=== PATIENT | female | born 1990 | race Caucasian/White ===

== ENCOUNTER 2017-11-17 14:10 | Emergency (ER) | payer OTHER ==
--- NOTE | 2017-11-17 15:06 | EDPHY ---
H & P Stated Complaint: bit by a dog on friday, right hand swelling abx per UC increased swelling Source: Patient Exam Limitations: No limitations - Personal History LMP (Females 10-55): 8-14 Days Ago Current Tetanus Diphtheria and Acellular Pertussis (TDAP): Yes Tetanus Vaccine Date: 2017 - Medical/Surgical History Hx Asthma: Yes Hx Chronic Respiratory Disease: No Hx Diabetes: No Hx Cardiac Disease: No Hx Renal Disease: No Hx Cirrhosis: No Hx Alcoholism: No Hx HIV/AIDS: No Hx Splenectomy or Spleen Trauma: No Other PMH: left clavicle repair, migraines - Social History Smoking Status: Never smoked Time Seen by Provider: 11/17/17 15:05 HPI/ROS: HPI: This is a 27-year-old female who presents with Chief Complaint: bit by a dog on Friday, right hand swelling abx per UC increased swelling Location: Right hand Quality: Dog bite Duration: 2 days Signs and Symptoms: No bleeding, no radiation, no numbness, no weakness, no tingling, no incontinence, no decreased range of motion, + swelling, + pain Timing: Worsening Severity: Moderate Context: Patient is right-hand dominant, was bit by small dog Friday that was up-to-date on his immunizations including rabies vaccination. She presented to the urgent care center where the wound was cleaned out, irrigated, tetanus booster given and started on Augmentin. Patient reports that the pharmacy closed at 6 pm in she was unable to fill her prescription at until Friday morning. She has only taken 3 antibiotic doses since her dog bite. 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 She denies paresthesias/weakness/decreased range of motion. She does report that there is some mild pinkness over her MCP joints but the color has remained constant over the last 24 hr. Modifying Factors: Augmentin Comment: ROS: see HPI Constitutional: No fever, no chills, no weight loss Eyes: No blurred vision Respiratory: No shortness of breath, no cough Cardiovascular: No chest pain Gastrointestinal: No nausea, no vomiting no diarrhea Genitourinary: No dysuria Extremities: No myalgias Neurologic: No weakness, no numbness Skin: No rashes Hematologic: No bruising, no bleeding MEDICAL/SURGICAL/SOCIAL HISTORY: Medical history: Migraine Surgical history: Left clavicle surgery Social history: Employed. CONSTITUTIONAL: Well-appearing young adult female, awake and alert, no obvious distress HEENT: Atraumatic and normocephalic, PERRL, EOMI. Tympanic membranes clear. Oropharynx clear, no exudate and moist pink mucosa. Airway patent. No lymphadenopathy. No meningismus. Cardiovascular: Normal S1/S2, regular rate, regular rhythm, without murmur rub or gallop. PULMONARY/CHEST: Symmetrical and nontender. Clear to auscultation bilaterally. Good air movement. No accessory muscle usage. ABDOMEN: Soft, nondistended, nontender, no rebound, no guarding, no peritoneal signs, no masses or organomegaly. No CVAT. EXTREMITIES: 2/2 radial pulses, site lead strength 5/5, right hand MCP 2 through 5 shows some mild erythema; no fluctuance; induration. DIP/PIP/MCP full range of motion of flexion and and extension. Light touch sensation intact. Small puncture site noted on the dorsal aspect of the wrist measuring approximately 1 cm in length-no surrounding erythema. no clubbing, no cyanosis or edema. NEUROLOGICAL: no focal neuro deficits. GCS 15. SKIN: Warm and dry, no erythema. no rash. Good capillary refill. (Bertha Merino) Constitutional: Initial Vital Signs Temperature (C) 36.8 C 11/17/17 14:15 Heart Rate 86 11/17/17 14:15 Respiratory Rate 18 11/17/17 14:15 Blood Pressure 125/74 H 11/17/17 14:15 O2 Sat (%) 99 11/17/17 14:15 O2 Delivery Mode Room Air Allergies/Adverse Reactions: Sulfa (Sulfonamide Antibiotics) Allergy (Verified 06/15/15 07:46) Home Medications: Medication Instructions Recorded Augmentin 875 MG TAB (*) 11/17/17 Sumatriptan 11/17/17 Topamax 11/17/17 Medical Decision Making Procedures: Procedure: Splint placement. A right volar splint was applied by the Emergency Room senior quality control technician. After application of the splint I returned and re-examined the patient. The splint was adequately immobilizing the joint and distal to the splint the patient's circulation and sensation was intact. (Bertha Merino) ED Course/Re-evaluation: X-rays at urgent care showed no signs of fracture/dislocation Tetanus up-to-date Patient has only received essentially 3 doses of Augmentin; no crepitus/ decreased joint range of motion/tenosynovitis Given 1 g Vancomycin Surgical marker used to outline edges of redness. Placed in volar splint for immobilization Advised rice therapy, continue Augmentin course, wound check in 2 days. No signs of neurovascular compromise/tenting of skin/compartment syndrome/ extremities and joints examined above and below area of concern and are neurovascularly intact. This patient was seen under the supervision of my secondary supervising physician. I evaluated care for this patient independently. Discussed this patient with Dr. Beard who did not see the patient. (Bertha Merino) Differential Diagnosis: Differential diagnosis includes but is not limited to abscess, tenosynovitis, foreign body, fracture, Cellulitis (Bertha Merino) Other Provider: The patient was evaluated and managed by the Physician Early Childhood Special Educator. I discussed the patient's presentation and course with the midlevel provider with them and agree with the evaluation. My co-signature indicates that I have reviewed this chart and I agree with the findings and plan of care as documented. I am the secondary supervising physician. (Samreen Beard) - Data Points Medications Given: Discontinued Medications Vancomycin/Sodium Chloride (Vancomycin 1 Gm (Premix)) 250 mls @ 250 mls/hr IV EDNOW ONE PRN Reason: Protocol Stop: 11/17/17 16:13 Last Admin: 11/17/17 15:51 Dose: 250 mls Departure - Departure Disposition: Home, Routine, Self-Care Clinical Impression: Dog bite of right hand Qualifiers: Encounter type: initial encounter Qualified Code(s): S61.451A - Open bite of right hand, initial encounter Condition: Good Instructions: Animal Bite (ED), Cellulitis (ED) Additional Instructions: Keep the splint dry and in place for 48 hours a tell seen in the emergency room for follow-up wound check. Return to the emergency room in 2 days for wound check. Take Tylenol 650 mg every 4 hours and/or Ibuprofen 600 mg every 8 hours with food as needed for pain. Apply ice for 30 minutes at a time; 2-3 times per day for the next 1-2 days. Continue to take Augmentin twice daily. Referrals: Geno Hunter MD [Primary Care Provider] - As per Instructions
[2017-11-17] MEDS ORDERED: VANCOMYCIN HCL/NORMAL SALINE 250 ML IV ONE (15:14)
[2017-11-17 15:53] VITALS: RESP 16
[2017-11-17 17:10] VITALS: BP 126/77; PULSE 85; TEMP 97.9; O2SAT 99
== END 2017-11-17 17:15 | disposition home or self-care (01) ==
DX: S61.451D Open bite of right hand, subsequent encounter (principal); J45.909 Unspecified asthma, uncomplicated; W54.0XXD Bitten by dog, subsequent encounter
CPT/HCPCS: 96374; J3370

== ENCOUNTER 2017-11-19 13:37 | Emergency (ER) | payer OTHER ==
[2017-11-19 13:47] VITALS: O2SAT 96
--- NOTE | 2017-11-19 14:24 | EDPHY ---
H & P Stated Complaint: dog bite r hand/here for wound recheck Time Seen by Provider: 11/19/17 14:23 HPI/ROS: HPI: This is a 27-year-old female who presents with Chief Complaint: dog bite r hand/here for wound recheck Location: Right hand Quality: Wound check Duration: Several days ago Signs and Symptoms: No bleeding, no radiation, no numbness, no weakness, no tingling, no incontinence, no decreased range of motion, + improved swelling, no pain Timing: Improving Severity: Mild Context: Patient is here for wound check. Saw the patient 2 days ago after referral from urgent care with concerns of failure of outpatient antibiotic. Patient was placed in a volar splint she is right-hand dominant; advised to continue on her Augmentin for full 10 day course. Patient was given a dose IV Vancomycin in the emergency room. She reports improving redness/swelling and now no warmth. She denies any pain. Modifying Factors: Augmentin Comment: ROS: see HPI Constitutional: No fever, no chills, no weight loss Eyes: No blurred vision Respiratory: No shortness of breath, no cough Cardiovascular: No chest pain Gastrointestinal: No nausea, no vomiting no diarrhea Genitourinary: No dysuria Extremities: No myalgias Neurologic: No weakness, no numbness Skin: No rashes Hematologic: No bruising, no bleeding MEDICAL/SURGICAL/SOCIAL HISTORY: Medical history: Migraine. Does not take any regular medications. Surgical history: Left clavicle repair Social history: Employed at daycare. CONSTITUTIONAL: awake and alert, no obvious distress HEENT: Atraumatic and normocephalic, PERRL, EOMI. Tympanic membranes clear. Oropharynx clear, no exudate and moist pink mucosa. Airway patent. No lymphadenopathy. No meningismus. Cardiovascular: Normal S1/S2, regular rate, regular rhythm, without murmur rub or gallop. PULMONARY/CHEST: Symmetrical and nontender. Clear to auscultation bilaterally. Good air movement. No accessory muscle usage. ABDOMEN: Soft, nondistended, nontender, no rebound, no guarding, no peritoneal signs, no masses or organomegaly. No CVAT. EXTREMITIES: 2/2 radial pulses, strength 5/5, right hand over the MCP joints are normal pigmented; no erythema; no fluctuant. DIP/PIP/MCP joints have full range of motion. no deformities, no clubbing, no cyanosis or edema. NEUROLOGICAL: no focal neuro deficits. GCS 15. SKIN: Warm and dry, no erythema. no rash. Good capillary refill. Source: Patient Exam Limitations: No limitations - Personal History LMP (Females 10-55): 8-14 Days Ago Current Tetanus/Diphtheria Vaccine: Yes Tetanus Vaccine Date: 2017 - Medical/Surgical History Hx Asthma: Yes Hx Chronic Respiratory Disease: No Hx Diabetes: No Hx Cardiac Disease: No Hx Renal Disease: No Hx Cirrhosis: No Hx Alcoholism: No Hx HIV/AIDS: No Hx Splenectomy or Spleen Trauma: No Other PMH: left clavicle repair, migraines - Social History Smoking Status: Never smoked Constitutional: Initial Vital Signs Temperature (C) 36.8 C 11/19/17 13:45 Heart Rate 79 11/19/17 13:45 Respiratory Rate 16 11/19/17 13:45 Blood Pressure 112/73 11/19/17 13:45 O2 Sat (%) 96 11/19/17 13:45 O2 Delivery Mode Room Air Allergies/Adverse Reactions: Sulfa (Sulfonamide Antibiotics) Allergy (Verified 11/19/17 13:44) Home Medications: Medication Instructions Recorded Augmentin 875 MG TAB (*) 11/17/17 Sumatriptan 11/17/17 Topamax 11/17/17 Medical Decision Making Procedures: Procedure: Splint placement. A right volar splint was applied by the Emergency Room nanotechnology engineering technician. After application of the splint I returned and re-examined the patient. The splint was adequately immobilizing the joint and distal to the splint the patient's circulation and sensation was intact. ED Course/Re-evaluation: Wound has greatly improved. Advised to continue Augmentin. Velcro splint did not cover the MCP joints so placed in volar splint until completion of antibiotics No signs of neurovascular compromise/tenting of skin/compartment syndrome/ extremities and joints examined above and below area of concern and are neurovascularly intact. This patient was seen under the supervision of my primary supervising physician. I evaluated care for this patient independently. Differential Diagnosis: Differential diagnosis includes but is not limited, to hand cellulitis, tenosynovitis. Departure - Departure Disposition: Home, Routine, Self-Care Clinical Impression: Encounter for wound re-check Dog bite of right hand Qualifiers: Encounter type: initial encounter Qualified Code(s): S61.451A - Open bite of right hand, initial encounter Condition: Good Instructions: Animal Bite (ED) Additional Instructions: Wear the fiberglass splint while out of bed until all antibiotics have been completed. Take Tylenol 650 mg every 4 hours and/or Ibuprofen 600 mg every 8 hours with food as needed for pain. Apply ice for 30 minutes at a time; at the end of the day. Continue to take all of the antibiotic until complete. Referrals: [facility],. [Clinic] - As per Instructions
[2017-11-19 15:09] VITALS: BP 132/85; PULSE 84; RESP 18; TEMP 98.6
== END 2017-11-19 15:06 | disposition home or self-care (01) ==
DX: Z48.01 Encounter for change or removal of surgical wound dressing (principal)